=== PATIENT | male | born 1975 | race Caucasian/White ===

== ENCOUNTER → 2021-08-13 | Outpatient (CLI) | payer OTHER ==
--- NOTE | 2021-08-14 15:26 | US ---
EXAMINATION TYPE: US scrotum with doppler. Grayscale and color Doppler Duplex imaging performed of t mary scrotum. DATE OF EXAM: 08/13/2021 COMPARISON: NONE CLINICAL HISTORY: N50.89 Testicular lump. Pt states feeling palpable lump left testicle x 1 month EXAM MEASUREMENTS: TESTICLES: Right Testicle: 4.5 x 2.1 x 3.0 cm Left Testicle: 4.2 x 2.1 x 3.2 cm EPIDIDYMIS HEAD: Right Epididymis: 1.1 cm Left Epididymis: 0.9 cm Doppler performed to assess for testicular vascularity; good bilateral color flow and waveforms are s een. There is no evidence of testicular torsion. Presence of hydroceles: Small amount of fluid medial to left testicle Presence of varicoceles: No IMPRESSION: Minimal left hydrocele.
== END | disposition home or self-care (01) ==
LOC: RADUSWWP 16:49
PROVIDERS: ATTEND Family Medicine
DX: N43.3 Hydrocele, unspecified (principal)
CPT/HCPCS: 76870; 93975

== ENCOUNTER 2021-08-19 08:01 | Day surgery (SDC) | payer OTHER ==
[2021-08-17 14:57] VITALS: BMI 34.8
[~2021-08-19 08:01] MED LIST: LACTATED RINGERS 1,000 ML IV SCH; LIDOCAINE 1% (10MG/ML) FOR IV START INTRADERMA PRN
[2021-08-19 08:26] VITALS: RESP 16; TEMP 97.6
[2021-08-19] MEDS ORDERED: PROPOFOL 10 MG/ML 20 ML VIAL IV ONE (10:01)
[2021-08-19] MEDS ORDERED: LIDOCAINE 1% INJ 10MG/ML (20 ML MDV) ONE (10:01)
--- NOTE | 2021-08-19 10:43 | P.OP ---
Date of Procedure: 08/19/21 Preoperative Diagnosis: Melanotic stool Postoperative Diagnosis: Possible duodenal mass pathology pending Antral gastritis Right colon polyp Procedure(s) Performed: EGD Colonoscopy Anesthesia: MAC Surgeon: Doe Mooney Pathology: other (Duodenum, antrum, right colon polyp) Condition: stable Disposition: PACU Description of Procedure: The patient's placed on the endoscopy table in the lateral position. Ramana IV sedation. The gastroscope placed oropharynx passed in the esophagus into the stomach. Scope was then placed through the pylorus. The first and second portion of duodenum examined. In the second portion duodenum there appeared to be an area of inflamed mucosa. The area appeared to have a slight mass effect. This was biopsied. The first part of the duodenum appeared normal. The scope was brought back the antrum this is minimally inflamed. Biopsies performed. Scope was then retroflexed and remainder stomach appeared normal. There was a hiatal hernia. The GE junction was at 40 cm. The distal esophagus appeared normal. The proximal esophagus appeared normal. The scope withdrawn for patient. Ter next digital rectal exam was performed which revealed no abnormalities. Flexible colonoscope was then placed patient anus and passed throughout the entire colon. The ileocecal valve was visually's. The cecum appeared normal. In the right colon there was a small sessile polyp removed with a cold forcep. The remainder the ascending colon, transverse colon and descending colon appeared normal. The scope was then brought back into the sigmoid colon was normal. Scope was brought back the rectum and this appeared normal. Scope withdrawn for patient. The patient was scheduled for computed tomography scan of the abdomen pelvis to evaluate for possible duodenal mass.
[2021-08-19 11:14] VITALS: BP 123/89; PULSE 86
--- NOTE | 2021-08-19 11:19 | P.GSHP ---
History of Present Illness H&P Date: 08/19/21 Chief Complaint: Melanotic stool A 45-year-old male who describes a history of melanotic stools. Patient has had tarry stools for several weeks. He presents today for EGD colonoscopy Past Medical History Past Medical History: Hyperlipidemia, Hypertension Additional Past Medical History / Comment(s): "I have had abdominal issues over the years.",steroids Jul 2021 History of Any Multi-Drug Resistant Organisms: None Reported Past Surgical History: Cholecystectomy Additional Past Surgical History / Comment(s): kidney stone removal,Lasik surgery Past Anesthesia/Blood Transfusion Reactions: No Reported Reaction Smoking Status: Current some day smoker - Past Family History Mother Family Medical History: No Reported History Medications and Allergies Home Medications Medication Instructions Recorded Confirmed Type Atorvastatin Calcium [Lipitor] 10 mg PO DAILY 08/17/21 08/19/21 History Dicyclomine HCl 20 mg PO DAILY 08/17/21 08/19/21 History Losartan [Cozaar] 25 mg PO HS 08/17/21 08/19/21 History Omeprazole 20 mg PO QAM 08/17/21 08/19/21 History polyethylene glycoL 3350 [Miralax] 17 gm PO DAILY 08/17/21 08/19/21 History Allergies Allergy/AdvReac Type Severity Reaction Status Date / Time Penicillins Allergy Swelling Verified 08/19/21 08:19 Surgical - Exam Vital Signs Temp Pulse Resp BP Pulse Ox 97.6 F 92 16 145/87 96 08/19/21 08:25 08/19/21 08:25 08/19/21 08:25 08/19/21 08:25 08/19/21 08:25 - General well developed, well nourished, no distress - Eyes PERRL - ENT normal pinna - Neck no masses - Respiratory normal expansion - Cardiovascular Rhythm: regular - Abdomen Abdomen: soft, non tender
== END 2021-08-19 11:30 | disposition home or self-care (01) ==
LOC: ORWHC2ENDO 08:01
PROVIDERS: ATTEND Surgery
DX: K29.70 Gastritis, unspecified, without bleeding (principal); E78.5 Hyperlipidemia, unspecified; F17.200 Nicotine dependence, unspecified, uncomplicated; I10 Essential (primary) hypertension; K63.5 Polyp of colon; Z88.0 Allergy status to penicillin; Z90.49 Acquired absence of other specified parts of digestive tract
CPT/HCPCS: 45380; 43239; 88305; J2001; J2704

== ENCOUNTER → 2021-08-24 | Outpatient (CLI) | payer OTHER ==
--- NOTE | 2021-08-24 08:22 | US ---
EXAMINATION TYPE: US abdomen limited DATE OF EXAM: 08/24/2021 COMPARISON: NONE CLINICAL HISTORY: R79.89 Other specified abnormal findings of blood. EXAM MEASUREMENTS: Liver Length: 16.2 cm Gallbladder Wall: Surgically absent CBD: 0.4 cm Right Kidney: 11.3x5.7x5.6 cm Pancreas: Hyperechoic Liver: Cysts= 2.7x2.5x2.5cm and 2.0x1.8x1.8cm Gallbladder: Surgically absent CBD: wnl Right Kidney: wnl IMPRESSION: Hepatic cysts.
== END | disposition home or self-care (01) ==
LOC: RADUSWWP 07:15
PROVIDERS: ATTEND Family Medicine
DX: K76.89 Other specified diseases of liver (principal)
CPT/HCPCS: 76705

== ENCOUNTER → 2021-08-30 | Outpatient (CLI) | payer OTHER ==
--- NOTE | 2021-08-30 21:29 | CT ---
EXAMINATION TYPE: CT abdomen pelvis w con DATE OF EXAM: 08/30/2021 COMPARISON: Ultrasound abdomen limited 6 days ago HISTORY: Abnormal colonoscopy. Frequent diarrhea x couple months. Duodenal mass. CT DLP: 1877.6 mGycm, Automated Exposure Control for Dose Reduction was Utilized. CONTRAST: CT scan of the abdomen and pelvis is performed with oral and with IV Contrast, patient injected with 100ml mL of Isovue 300. FINDINGS: LUNG BASES: Mild bibasilar linear scarring and/or atelectasis. LIVER/GB: Liver is heterogeneously hypodense consistent with diffuse fatty infiltration. Hypodense 2. 2 cm lesion posterior segment right hepatic lobe consistent with simple thin-walled cyst. Cholecystec angel luis clips. PANCREAS: No significant abnormality is seen. SPLEEN: No significant abnormality is seen. ADRENALS: No significant abnormality is seen. KIDNEYS: Symmetric cortical medullary uptake and excretion without hydronephrosis seen bilaterally. N o renal calculus in the mildly distended bladder. BOWEL: Oral contrast reaches level of the mid transverse colon. Stomach and duodenal sweep appear wit hin normal limits. No suspicious small or large bowel dilatation. Terminal ileum appears within humza l limits coronal image 40. Normal-appearing appendix seen coronal image 53 for reference. A few dista l colonic diverticula in the sigmoid colon PROSTATE/SEMINAL VESICLES: No gross abnormality seen. LYMPH NODES: No greater than 1cm abdominal or pelvic lymph nodes are appreciated. OSSEOUS STRUCTURES: There is transitional L6 type vertebra. OTHER: Symmetric small fat-containing inguinal hernias. IMPRESSION: No suspicious mass or adenopathy.
== END | disposition home or self-care (01) ==
LOC: RADCTMAIN 16:14
PROVIDERS: ATTEND Surgery
DX: R19.7 Diarrhea, unspecified (principal)
CPT/HCPCS: 74177; Q9967

== ENCOUNTER → 2021-12-02 | Day surgery (SDC) | payer OTHER ==
[2021-12-01 12:39] VITALS: BMI 33.2
[~2021-12-02] MED LIST changes: +LACTATED RINGERS 1,000 ML IV ONE; +LIDOCAINE 1% INJ 10MG/ML (20 ML MDV) ONE; +PROPOFOL 10 MG/ML 20 ML VIAL IV ONE
[2021-12-02 08:24] VITALS: TEMP 97.8
--- NOTE | 2021-12-02 09:11 | P.GSHP ---
History of Present Illness H&P Date: 12/02/21 Chief Complaint: History of duodenitis Referral male presents history of duodenitis. Patient today for EGD. Past Medical History Past Medical History: Hyperlipidemia, Hypertension Additional Past Medical History / Comment(s): IBS History of Any Multi-Drug Resistant Organisms: None Reported Past Surgical History: Cholecystectomy Additional Past Surgical History / Comment(s): COLONOSCOPY, CYSTOSCOPY - KIDNEY STONE REMOVED, LASIK, WISDOM TEETH REMOVED Past Anesthesia/Blood Transfusion Reactions: No Reported Reaction Smoking Status: Never smoker - Past Family History Mother Family Medical History: No Reported History Medications and Allergies Home Medications Medication Instructions Recorded Confirmed Type Atorvastatin Calcium [Lipitor] 10 mg PO HS 08/17/21 12/01/21 History Dicyclomine HCl 20 mg PO TID 08/17/21 12/01/21 History Losartan [Cozaar] 100 mg PO HS 08/17/21 12/01/21 History Omeprazole 20 mg PO QAM 08/17/21 12/01/21 History Allergies Allergy/AdvReac Type Severity Reaction Status Date / Time Penicillins Allergy Swelling Verified 12/01/21 10:41 Surgical - Exam Vital Signs Temp Pulse Resp BP Pulse Ox 97.8 F 76 18 147/97 96 12/02/21 08:23 12/02/21 08:23 12/02/21 08:23 12/02/21 08:23 12/02/21 08:23 - General well developed, well nourished, no distress - Eyes PERRL - ENT normal pinna - Neck no masses - Respiratory normal expansion - Cardiovascular Rhythm: regular - Abdomen Abdomen: soft, non tender Assessment and Plan Assessment: History of duodenitis. We'll perform EGD.
--- NOTE | 2021-12-02 09:20 | P.OP ---
Date of Procedure: 12/02/21 Preoperative Diagnosis: Gastritis Duodenitis Postoperative Diagnosis: Antral gastritis Duodenitis Procedure(s) Performed: EGD Anesthesia: MAC Surgeon: Doe Mooney Pathology: other (Antrum, duodenum) Condition: stable Disposition: PACU Description of Procedure: The patient's placed on the endoscopy table in the lateral position. He received IV sedation. The gastroscope placed oropharynx and then into the stomach and through the pylorus. The first and second portion of duodenum was examined. There is minimal inflamed. There is no mass or duodenum. A biopsies performed. Scope was brought back and there was some mild antral gastritis. This was biopsied. Scope was retroflexed remainder stomach appeared normal. The GE junction was at 40 cm. The distal esophagus appeared normal. The proximal esophagus. Normal. Scope was withdrawn for patient.
[2021-12-02 09:42] VITALS: BP 130/92; PULSE 65; RESP 16
== END ==
LOC: ORWHC2ENDO 08:09
PROVIDERS: ATTEND Surgery
DX: K29.70 Gastritis, unspecified, without bleeding (principal); K29.80 Duodenitis without bleeding; E78.5 Hyperlipidemia, unspecified; I10 Essential (primary) hypertension; K58.9 Irritable bowel syndrome, unspecified
CPT/HCPCS: 43239; 88305; J2001; J2704

== ENCOUNTER → 2021-12-15 | Outpatient (CLI) | payer OTHER ==
--- NOTE | 2021-12-15 15:06 | US ---
EXAMINATION TYPE: US mass soft tissue chest/back DATE OF EXAM: 12/15/2021 COMPARISON: NONE CLINICAL HISTORY: M79.89 SOFT TISSUE MASS. Multiple palpable areas on back. Right: 1.4 x 0.7 x 1.7cm Side: 1.2 x 0.6 x 2.0cm Left: 1.) 1.5 x 0.7 x 2.3cm, 2.) 1.5 x 1.3 x 3.0cm IMPRESSION: Probable lipomas.
== END | disposition home or self-care (01) ==
LOC: RADUSWWP 14:10
PROVIDERS: ATTEND Family Medicine
DX: M79.89 Other specified soft tissue disorders (principal)

== ENCOUNTER → 2021-12-15 | Outpatient (CLI) | payer OTHER ==
[2021-12-15 23:36] LABS: Ceruloplasmin 20.2 mg/dL (20.0-60.0)
[2021-12-16 00:36] LABS: % Iron Saturation 36.35 (15.00-50.00); ALT 64 U/L (10-49); AST 32 U/L (14-35); Albumin 4.9 g/dL (3.8-4.9); Albumin/Globulin Ratio 2.21 (1.60-3.17); Alkaline Phosphatase 80 U/L (41-126); Bilirubin, Conjugated <0.20 mg/dL (0.20-0.40); Globulin 2.2 g/dL (1.6-3.3); Iron 115 ug/dL (65-175); Total Iron Binding Capacity 316 ug/dL (228-460); Total Protein 7.1 g/dL (6.2-8.2)
== END | disposition home or self-care (01) ==
LOC: LABWHC1 14:08
PROVIDERS: ATTEND Physician Assistant
DX: R79.89 Other specified abnormal findings of blood chemistry (principal)
CPT/HCPCS: 36415; 80076; 82390; 82728; 83516; 83540; 83550; 86038

== ENCOUNTER → 2023-01-25 | Outpatient (CLI) | payer OTHER ==
[2023-01-26 01:18] LABS: Basophils # (A) 0.03 X 10*3/uL (0.00-0.10); Basophils % (A) 0.4 %; Eosinophils # (A) 0.06 X 10*3/uL (0.04-0.35); Eosinophils % (A) 0.8 %; HCT 48.7 % (39.6-50.0); HGB 16.1 g/dL (13.0-17.0); Immature Grans, Automated 0.4 %; Lymphocytes # (A) 2.34 X 10*3/uL (0.90-5.00); Lymphocytes % (A) 31.5 %; MCH 29.7 pg (27.0-32.0); MCHC 33.1 g/dL (32.0-37.0); MCV 89.9 fL (80.0-97.0); Mean Platelet Volume 9.5 fL (9.5-12.2); Monocytes # (A) 0.65 X 10*3/uL (0.20-1.00); Monocytes % (A) 8.8 %; NRBC Per 100 WBC 0 /100 WBCS (0.0-0.0); Neutrophils # (A) 4.31 X 10*3/uL (1.80-7.70); Neutrophils % (A) 58.1 %; Platelet Count 229 X 10*3/uL (140-440); RBC 5.42 X 10*6/uL (4.40-5.60); RDW 13.2 % (11.5-14.5); WBC 7.42 X 10*3/uL (4.50-10.00)
[2023-01-26 03:05] LABS: African American GFR (CKD) 97.8 (60.0-200.0); Anion Gap 11.1 mmol/L (10.00-18.00); BUN/Creat Ratio 9.62 Ratio (12.00-20.00); Blood Urea Nitrogen 10.2 mg/dL (9.0-27.0); Calcium 10.1 mg/dL (8.7-10.3); Carbon Dioxide 26.7 mmol/L (20.0-27.5); Non-African American GFR(CKD) 84.3 (60.0-200.0)
== END | disposition home or self-care (01) ==
LOC: LABWHC1 11:34
PROVIDERS: ATTEND Urology
DX: Z01.812 Encounter for preprocedural laboratory examination (principal); N50.3 Cyst of epididymis
CPT/HCPCS: 36415; 80048; 85025